=== PATIENT | male | born 1995 | race Caucasian/White ===

== ENCOUNTER 2019-12-09 04:43 | Emergency (ER) | payer OTHER ==
[~2019-12-09] VITALS: Ht 185.4 cm; Wt 113.4 kg
[2019-12-09] MEDS ORDERED: ACETAMINOPHEN 325 MG TAB ONE (05:00)
[2019-12-09] MEDS ORDERED: IBUPROFEN 600 MG TAB ONE (05:00)
[2019-12-09] MEDS ORDERED: IBUPROFEN 200 MG TAB PO STA (05:13)
[2019-12-09] MEDS ORDERED: ACETAMINOPHEN 325 MG TAB PO ONE (05:15)
[2019-12-09] MEDS ORDERED: DEXAMETHASONE SOD PHOS 10 MG/1 ML VIAL IV ONE (06:00)
[2019-12-09] MEDS ORDERED: SODIUM CHLORIDE 0.9% 1000ML 1,000 ML IV STA (06:00)
[2019-12-09] MEDS ORDERED: DIPHENHYDRAMINE HCL INJ 50 MG/ML VIAL IV ONE (06:00)
[2019-12-09] MEDS ORDERED: METOCLOPRAMIDE HCL 10 MG/2ML VIAL IV ONE (06:00)
[2019-12-09] MEDS ORDERED: METOCLOPRAMIDE HCL 10 MG/2ML VIAL ONE (06:06)
[2019-12-09] MEDS ORDERED: DIPHENHYDRAMINE HCL INJ 50 MG/ML VIAL ONE (06:07)
[2019-12-09] MEDS ORDERED: SODIUM CHLORIDE 0.9% 1000ML 1,000 ML ONE (06:07)
[2019-12-09] MEDS ORDERED: DEXAMETHASONE SOD PHOS 10 MG/1 ML VIAL ONE (06:07)
--- NOTE | 2019-12-09 06:35 | NUR ---
pt states pain not any better, IV fluids infusing at this time,
[2019-12-09 06:58] VITALS: BP 158/87
== END 2019-12-09 07:03 | disposition home or self-care (01) ==
LOC: FSED 04:43
DX: G43.909 Migraine, unspecified, not intractable, without status migrainosus (principal); F41.9 Anxiety disorder, unspecified
CPT/HCPCS: 96374; 96375; 96376; 99283; J1100; J1200; J2765; J7030